=== PATIENT | male | born 1960 | race Caucasian/White ===

== ENCOUNTER 2016-07-09 19:04 | Emergency (ER) | payer MEDICAID ==
[~2016-07-09] VITALS: Ht 182.9 cm; Wt 105.0 kg
[2016-07-09 19:05] VITALS: BP 101/59
== END 2016-07-09 21:40 | disposition left against medical advice (07) ==
LOC: ER 19:05
DX: Z53.21 Procedure and treatment not carried out due to patient leaving prior to being seen by health care provider (principal)

== ENCOUNTER 2016-08-12 23:26 | Emergency (ER) | payer MEDICAID ==
[~2016-08-12] VITALS: Ht 182.9 cm; Wt 82.0 kg
[2016-08-13] MEDS ORDERED: SODIUM CHLORIDE 0.9% 1,000 ML IV ONE (06:56)
[2016-08-13 10:48] LABS: *AMPHETAMINES SCREEN URINE NEGATIVE (NEGATIVE); *BARBITURATES SCREEN URINE NEGATIVE (NEGATIVE); *BENZODIAZEPINES SCREEN URINE PRESUMTIVE POSITIVE (NEGATIVE); *COCAINE SCREEN URINE NEGATIVE (NEGATIVE); CANNABINOID URINE SCREEN PRESUMTIVE POSITIVE (NEGATIVE); METHADONE URINE SCREEN NEGATIVE (NEGATIVE); OPIATES URINE SCREEN NEGATIVE (NEGATIVE); PHENCYCLIDINE URINE SCREEN NEGATIVE (NEGATIVE)
[2016-08-13 15:10] VITALS: BP 124/65
== END 2016-08-13 15:56 | disposition home or self-care (01) ==
LOC: ER 23:27
DX: F10.129 Alcohol abuse with intoxication, unspecified (principal); F12.10 Cannabis abuse, uncomplicated; F17.200 Nicotine dependence, unspecified, uncomplicated; I10 Essential (primary) hypertension; Z79.899 Other long term (current) drug therapy; Y90.9 Presence of alcohol in blood, level not specified
CPT/HCPCS: 36415; 71010; 80305; 93005; 96360; 99285; G0482; J7030; Z7610

== ENCOUNTER 2016-09-23 23:15 | Emergency (ER) | payer MEDICAID ==
[~2016-09-23] VITALS: Ht 180.3 cm; Wt 91.0 kg
[2016-09-24] MEDS ORDERED: KETOROLAC 30MG/ML VIAL IV STA (07:39)
[2016-09-24 07:59] LABS: BASOPHILS % 0.3 % (0.0-2.0); EOSINOPHILS % 2.5 % (0.0-5.0); HEMATOCRIT. 38.5 % (42.0-52.0); HEMOGLOBIN. 13.1 g/dL (14.0-18.0); LYMPHOCYTES % 22.8 % (20.0-50.0); MEAN CORPUSCULAR HEMOGLOBIN 34.6 pg (28.0-32.0); MEAN CORPUSCULAR VOLUME 101.3 fL (80.0-94.0); NEUTROPHILS % 65.4 % (40.0-76.0); PLATELET 78 x1000/uL (130-400)
[2016-09-24 08:12] LABS: AMMONIA 12 uMol/L (<32)
[2016-09-24 08:16] LABS: CARBON DIOXIDE 27 mEq/L (21-32); CHLORIDE 111 mEq/L (98-107); CREATINE KINASE 537 IU/L (39-308); ETHANOL BLOOD 232 mg/dL; TROPONIN I 0.02 ng/mL (0.00-0.04)
[2016-09-24 09:32] LABS: *AMPHETAMINES SCREEN URINE NEGATIVE (NEGATIVE); *BARBITURATES SCREEN URINE NEGATIVE (NEGATIVE); *BENZODIAZEPINES SCREEN URINE NEGATIVE (NEGATIVE); *COCAINE SCREEN URINE NEGATIVE (NEGATIVE); CANNABINOID URINE SCREEN NEGATIVE (NEGATIVE); METHADONE URINE SCREEN NEGATIVE (NEGATIVE); OPIATES URINE SCREEN NEGATIVE (NEGATIVE); PHENCYCLIDINE URINE SCREEN NEGATIVE (NEGATIVE)
[2016-09-24 09:38] LABS: CLARITY URINE CLEAR (CLEAR); COLOR URINE YELLOW (YELLOW); GLUCOSE URINE NEGATIVE (NEGATIVE); KETONES URINE NEGATIVE (NEGATIVE); LEUKOCYTE ESTERASE URINE NEGATIVE (NEGATIVE); NITRITE URINE NEGATIVE (NEGATIVE); OCCULT BLOOD URINE NEGATIVE (NEGATIVE); PROTEIN URINE NEGATIVE (NEGATIVE); SPECIFIC GRAVITY URINE 1.013 (1.005-1.030); UROBILINOGEN URINE 0.2 E.U./dL (0.2-1.0)
[2016-09-24 11:15] VITALS: BP 146/88
== END 2016-09-24 12:09 | disposition home or self-care (01) ==
LOC: ER 23:15
DX: M54.5 Low back pain (principal); M16.10 Unilateral primary osteoarthritis, unspecified hip; R53.1 Weakness; M79.1 Myalgia; R41.82 Altered mental status, unspecified; F10.20 Alcohol dependence, uncomplicated; I25.10 Atherosclerotic heart disease of native coronary artery without angina pectoris; Z87.891 Personal history of nicotine dependence
CPT/HCPCS: 36415; 70450; 72100; 80053; 80305; 81003; 82140; 82550; 84484; 85025; 96374; 99285; G0482; J1885; Z7610

== ENCOUNTER 2016-09-27 17:12 | Emergency (ER) | payer MEDICAID ==
[~2016-09-27] VITALS: Ht 182.9 cm; Wt 68.0 kg
[2016-09-27] MEDS ORDERED: IBUPROFEN 600MG TABLET PO STA (17:44)
[2016-09-27 19:08] VITALS: BP 120/68
== END 2016-09-27 19:10 | disposition home or self-care (01) ==
LOC: ER 19:08
DX: G89.29 Other chronic pain (principal); M54.5 Low back pain; I10 Essential (primary) hypertension; I25.10 Atherosclerotic heart disease of native coronary artery without angina pectoris
CPT/HCPCS: 93005; 99283

== ENCOUNTER 2016-09-28 02:36 | Emergency (ER) | payer MEDICAID ==
[~2016-09-28] VITALS: Ht 177.8 cm; Wt 81.0 kg
[2016-09-28 04:18] LABS: BASOPHILS % 0.9 % (0.0-2.0); EOSINOPHILS % 3.2 % (0.0-5.0); HEMATOCRIT. 39.6 % (42.0-52.0); HEMOGLOBIN. 13.5 g/dL (14.0-18.0); LYMPHOCYTES % 40.5 % (20.0-50.0); MEAN CORPUSCULAR HEMOGLOBIN 34.6 pg (28.0-32.0); MEAN CORPUSCULAR VOLUME 101.5 fL (80.0-94.0); MEAN PLATELET VOLUME 8.4 fl (7.4-10.4); MONOCYTES % 8.9 % (2.0-8.0); NEUTROPHILS % 46.5 % (40.0-76.0); PLATELET 64 x1000/uL (130-400); RED CELL DISTRIBUTION WIDTH 15.1 % (11.6-14.6)
[2016-09-28 04:34] LABS: CARBON DIOXIDE 24 mEq/L (21-32); CHLORIDE 108 mEq/L (98-107); TROPONIN I 0.03 ng/mL (0.00-0.04)
[2016-09-28 04:50] VITALS: BP 108/56
== END 2016-09-28 06:52 | disposition home or self-care (01) ==
LOC: ER 02:36
DX: M79.606 Pain in leg, unspecified (principal); I25.10 Atherosclerotic heart disease of native coronary artery without angina pectoris; I10 Essential (primary) hypertension; Z95.5 Presence of coronary angioplasty implant and graft
CPT/HCPCS: 36415; 71010; 80053; 83690; 84484; 85025; 93005; 99285

== ENCOUNTER 2016-10-04 20:00 | Emergency (ER) | payer MEDICAID ==
[~2016-10-04] VITALS: Ht 182.9 cm; Wt 90.0 kg
[2016-10-04 20:04] VITALS: BP 113/68
== END 2016-10-05 01:51 | disposition left against medical advice (07) ==
LOC: ER 20:35
DX: M79.1 Myalgia (principal); Z53.21 Procedure and treatment not carried out due to patient leaving prior to being seen by health care provider

== ENCOUNTER 2016-10-10 17:05 | Emergency (ER) | payer MEDICAID ==
[~2016-10-10] VITALS: Ht 182.9 cm; Wt 82.0 kg
[2016-10-10] MEDS ORDERED: IBUPROFEN 800MG TABLET PO ONE (22:30)
[2016-10-11 01:30] VITALS: BP 145/75
== END 2016-10-11 01:30 | disposition home or self-care (01) ==
LOC: ER 22:24
DX: S82.032A Displaced transverse fracture of left patella, initial encounter for closed fracture (principal); I10 Essential (primary) hypertension; I25.2 Old myocardial infarction; F17.200 Nicotine dependence, unspecified, uncomplicated; X58.XXXA Exposure to other specified factors, initial encounter; Y93.89 Activity, other specified; Y92.89 Other specified places as the place of occurrence of the external cause; Y99.8 Other external cause status
CPT/HCPCS: 29505; 73562; 99284

== ENCOUNTER 2016-10-14 22:48 | Emergency (ER) | payer MEDICAID ==
[~2016-10-14] VITALS: Ht 182.9 cm; Wt 84.0 kg
[2016-10-15] MEDS ORDERED: KETOROLAC 60MG/2ML VIAL IM ONE (06:30)
[2016-10-15 07:00] VITALS: BP 122/72
== END 2016-10-15 07:08 | disposition home or self-care (01) ==
LOC: ER 23:05
DX: M25.562 Pain in left knee (principal); Z59.0 Homelessness
CPT/HCPCS: 96372; 99283; J1885; Z7610

== ENCOUNTER 2016-10-16 21:37 | Emergency (ER) | payer MEDICAID ==
[~2016-10-16] VITALS: Ht 175.3 cm; Wt 73.0 kg
[2016-10-17] MEDS ORDERED: KETOROLAC 60MG/2ML VIAL IM ONE (00:45)
[2016-10-17 01:10] VITALS: BP 120/78
[2017-01-19] MEDS ORDERED: KEPP500 PO (17:21)
[2017-01-20] MEDS ORDERED: KEPP500 PO (10:59)
== END 2016-10-17 01:48 | disposition home or self-care (01) ==
LOC: ER 21:44
DX: M25.562 Pain in left knee (principal); E11.9 Type 2 diabetes mellitus without complications; I10 Essential (primary) hypertension; I25.2 Old myocardial infarction; F17.210 Nicotine dependence, cigarettes, uncomplicated; Z90.49 Acquired absence of other specified parts of digestive tract; Z87.81 Personal history of (healed) traumatic fracture
CPT/HCPCS: 96372; 99283; J1885

== ENCOUNTER 2016-10-27 19:06 | Emergency (ER) | payer MEDICAID ==
[~2016-10-27] VITALS: Ht 182.9 cm; Wt 88.5 kg
[2016-10-27 19:22] VITALS: BP 112/68
== END 2016-10-28 00:25 | disposition left against medical advice (07) ==
LOC: ER 19:09
DX: Z53.21 Procedure and treatment not carried out due to patient leaving prior to being seen by health care provider (principal)

== ENCOUNTER 2016-10-28 05:21 | Emergency (ER) | payer MEDICAID ==
[~2016-10-28] VITALS: Ht 180.3 cm; Wt 78.0 kg
[2016-10-28 06:20] VITALS: BP 119/65
[2016-10-28] MEDS ORDERED: HYDROCODONE/ACETAMINOPHEN 5/325MG TABLET PO ONE (10:30)
[2017-01-19] MEDS ORDERED: KEPP500 PO (17:21)
[2017-01-20] MEDS ORDERED: KEPP500 PO (10:59)
== END 2016-10-28 10:49 | disposition home or self-care (01) ==
LOC: ER 07:57
DX: M25.562 Pain in left knee (principal); G40.909 Epilepsy, unspecified, not intractable, without status epilepticus; I95.9 Hypotension, unspecified; I25.2 Old myocardial infarction; F17.200 Nicotine dependence, unspecified, uncomplicated; I10 Essential (primary) hypertension; G89.29 Other chronic pain; Z90.49 Acquired absence of other specified parts of digestive tract
CPT/HCPCS: 99281

== ENCOUNTER 2016-10-28 22:17 | Emergency (ER) | payer MEDICAID ==
[~2016-10-28] VITALS: Ht 175.3 cm; Wt 84.0 kg
[2016-10-28 22:36] VITALS: BP 137/67
== END 2016-10-29 01:30 | disposition left against medical advice (07) ==
LOC: ER 22:24
DX: Z53.21 Procedure and treatment not carried out due to patient leaving prior to being seen by health care provider (principal)

== ENCOUNTER 2016-11-05 16:27 | Emergency (ER) | payer MEDICAID ==
[~2016-11-05] VITALS: Ht 180.3 cm; Wt 79.0 kg
[2016-11-05 16:36] VITALS: BP 106/70
== END 2016-11-05 23:46 | disposition left against medical advice (07) ==
LOC: ER 16:27
DX: Z53.21 Procedure and treatment not carried out due to patient leaving prior to being seen by health care provider (principal)

== ENCOUNTER 2016-11-06 04:50 | Emergency (ER) | payer MEDICAID ==
[~2016-11-06] VITALS: Ht 180.3 cm; Wt 77.0 kg
[2016-11-06] MEDS ORDERED: KETOROLAC 60MG/2ML VIAL IM ONE (08:00)
[2016-11-06 08:04] VITALS: BP 124/76
[2016-11-06] MEDS ORDERED: SODIUM CHLORIDE 0.9% 1,000 ML IV ONE (10:00)
== END 2016-11-06 10:46 | disposition home or self-care (01) ==
LOC: ER 08:11
DX: M25.562 Pain in left knee (principal); G89.29 Other chronic pain; I25.2 Old myocardial infarction; I10 Essential (primary) hypertension; R56.9 Unspecified convulsions; F17.210 Nicotine dependence, cigarettes, uncomplicated
CPT/HCPCS: 96372; 99284; J1885; J7030

== ENCOUNTER 2016-11-10 21:57 | Emergency (ER) | payer MEDICAID ==
[~2016-11-10] VITALS: Ht 170.2 cm; Wt 73.0 kg
[2016-11-11 00:43] LABS: BASOPHILS % 0.7 % (0.0-2.0); EOSINOPHILS % 5.4 % (0.0-5.0); HEMATOCRIT. 35.6 % (42.0-52.0); HEMOGLOBIN. 12.2 g/dL (14.0-18.0); MEAN CORPUSCULAR VOLUME 102.2 fL (80.0-94.0); MEAN PLATELET VOLUME 7.9 fl (7.4-10.4); MONOCYTES % 7.8 % (2.0-8.0); NEUTROPHILS % 39.1 % (40.0-76.0); PLATELET 119 x1000/uL (130-400); RED BLOOD CELL COUNT 3.48 mill/uL (4.7-6.1); RED CELL DISTRIBUTION WIDTH 14.9 % (11.6-14.6)
[2016-11-11 00:48] LABS: CHLORIDE 111 mEq/L (98-107)
[2016-11-11 00:58] LABS: CARBON DIOXIDE 23 mEq/L (21-32); CREATINE KINASE 232 IU/L (39-308)
[2016-11-11 01:20] LABS: ETHANOL BLOOD 363 mg/dL
[2016-11-11 03:29] LABS: CLARITY URINE CLEAR (CLEAR); COLOR URINE YELLOW (YELLOW); GLUCOSE URINE NEGATIVE (NEGATIVE); KETONES URINE NEGATIVE (NEGATIVE); LEUKOCYTE ESTERASE URINE NEGATIVE (NEGATIVE); NITRITE URINE NEGATIVE (NEGATIVE); OCCULT BLOOD URINE NEGATIVE (NEGATIVE); PH URINE 5.5 (4.5-8.0); PROTEIN URINE NEGATIVE (NEGATIVE); SPECIFIC GRAVITY URINE 1.009 (1.005-1.030); UROBILINOGEN URINE 0.2 E.U./dL (0.2-1.0)
[2016-11-11 03:42] LABS: *AMPHETAMINES SCREEN URINE NEGATIVE (NEGATIVE); *BARBITURATES SCREEN URINE NEGATIVE (NEGATIVE); *BENZODIAZEPINES SCREEN URINE PRESUMTIVE POSITIVE (NEGATIVE); *COCAINE SCREEN URINE NEGATIVE (NEGATIVE); CANNABINOID URINE SCREEN NEGATIVE (NEGATIVE); METHADONE URINE SCREEN NEGATIVE (NEGATIVE); OPIATES URINE SCREEN NEGATIVE (NEGATIVE); PHENCYCLIDINE URINE SCREEN NEGATIVE (NEGATIVE)
[2016-11-11 08:53] VITALS: BP 136/74
== END 2016-11-11 10:27 | disposition home or self-care (01) ==
LOC: ER 22:05
DX: M25.562 Pain in left knee (principal); F17.200 Nicotine dependence, unspecified, uncomplicated
CPT/HCPCS: 36415; 80053; 80305; 81003; 82550; 85025; 99284; G0482; Z7610

== ENCOUNTER 2016-11-12 18:29 | Emergency (ER) | payer MEDICAID ==
[~2016-11-12] VITALS: Ht 177.8 cm; Wt 90.0 kg
[2016-11-12 18:31] VITALS: BP 106/56
== END 2016-11-13 06:16 | disposition left against medical advice (07) ==
LOC: ER 18:37
DX: Z53.21 Procedure and treatment not carried out due to patient leaving prior to being seen by health care provider (principal)

== ENCOUNTER 2016-11-13 01:51 | Emergency (ER) | payer MEDICAID ==
[~2016-11-13] VITALS: Ht 180.3 cm; Wt 78.0 kg
[2016-11-13] MEDS ORDERED: KETOROLAC 60MG/2ML VIAL IM STA (08:55)
[2016-11-13 09:59] LABS: BASOPHILS % 0.6 % (0.0-2.0); EOSINOPHILS % 5.7 % (0.0-5.0); HEMATOCRIT. 37.8 % (42.0-52.0); LYMPHOCYTES % 35.4 % (20.0-50.0); MEAN CORPUSCULAR HEMOGLOBIN 34.9 pg (28.0-32.0); MEAN CORPUSCULAR VOLUME 101.8 fL (80.0-94.0); MEAN PLATELET VOLUME 7.5 fl (7.4-10.4); MONOCYTES % 11.3 % (2.0-8.0); PLATELET 98 x1000/uL (130-400); RED BLOOD CELL COUNT 3.72 mill/uL (4.7-6.1); RED CELL DISTRIBUTION WIDTH 14.7 % (11.6-14.6)
[2016-11-13 10:10] LABS: CHLORIDE 109 mEq/L (98-107)
[2016-11-13 10:24] LABS: CARBON DIOXIDE 27 mEq/L (21-32); ETHANOL BLOOD 262 mg/dL
[2016-11-13 11:37] VITALS: BP 124/78
== END 2016-11-13 12:41 | disposition home or self-care (01) ==
LOC: ER 02:10
DX: M25.562 Pain in left knee (principal); G89.29 Other chronic pain; F10.129 Alcohol abuse with intoxication, unspecified; Y90.8 Blood alcohol level of 240 mg/100 ml or more; D50.9 Iron deficiency anemia, unspecified; I10 Essential (primary) hypertension; I25.2 Old myocardial infarction; G40.909 Epilepsy, unspecified, not intractable, without status epilepticus
CPT/HCPCS: 36415; 80053; 85025; 93971; 96372; 99285; G0482; J1885

== ENCOUNTER 2016-11-17 01:58 | Emergency (ER) | payer MEDICAID ==
[~2016-11-17] VITALS: Ht 180.3 cm; Wt 82.0 kg
[2016-11-17] MEDS ORDERED: KETOROLAC 60MG/2ML VIAL IM ONE (09:00)
[2016-11-17 09:04] VITALS: BP 119/72
== END 2016-11-17 09:57 | disposition left against medical advice (07) ==
LOC: ER 01:58
DX: M25.562 Pain in left knee (principal); G89.29 Other chronic pain; I25.2 Old myocardial infarction; I10 Essential (primary) hypertension; G40.909 Epilepsy, unspecified, not intractable, without status epilepticus; Z90.49 Acquired absence of other specified parts of digestive tract
CPT/HCPCS: 96372; 99283; J1885; Z7610

== ENCOUNTER 2016-12-09 00:01 | Emergency (ER) | payer MEDICAID ==
[~2016-12-09] VITALS: Ht 180.3 cm; Wt 90.0 kg
[2016-12-09 09:10] VITALS: BP 108/62
== END 2016-12-09 09:16 | disposition home or self-care (01) ==
LOC: ER 00:01
DX: S01.81XA Laceration without foreign body of other part of head, initial encounter (principal); S81.012D Laceration without foreign body, left knee, subsequent encounter; M24.562 Contracture, left knee; F17.200 Nicotine dependence, unspecified, uncomplicated; F12.10 Cannabis abuse, uncomplicated; I25.2 Old myocardial infarction; W19.XXXA Unspecified fall, initial encounter; Y93.89 Activity, other specified; Y92.89 Other specified places as the place of occurrence of the external cause; Y99.8 Other external cause status
CPT/HCPCS: 12013; 70450; 72125; 99284; X7700; Z7610

== ENCOUNTER 2016-12-10 00:29 | Emergency (ER) | payer MEDICAID ==
[~2016-12-10] VITALS: Ht 177.8 cm; Wt 79.5 kg
[2016-12-10] MEDS ORDERED: FOLIC ACID 1 MG, THIAMINE HCL 100 MG, MVI, ADULT NO.1 10 ML in DEXTROSE 5% WATER 1,000 ML IV ONE ×4 (03:00)
[2016-12-10 05:37] VITALS: BP 112/66
[2017-01-19] MEDS ORDERED: KEPP500 PO (17:21)
[2017-01-20] MEDS ORDERED: KEPP500 PO (10:59)
== END 2016-12-10 06:53 | disposition home or self-care (01) ==
LOC: ER 00:29
DX: S20.211A Contusion of right front wall of thorax, initial encounter (principal); F10.129 Alcohol abuse with intoxication, unspecified; G40.909 Epilepsy, unspecified, not intractable, without status epilepticus; I25.2 Old myocardial infarction; F12.10 Cannabis abuse, uncomplicated; Z59.0 Homelessness; Y90.9 Presence of alcohol in blood, level not specified; X58.XXXA Exposure to other specified factors, initial encounter; Y93.89 Activity, other specified; Y92.488 Other paved roadways as the place of occurrence of the external cause
CPT/HCPCS: 71101; 99284; Z7610

== ENCOUNTER 2016-12-10 12:45 | Emergency (ER) | payer MEDICAID ==
[~2016-12-10] VITALS: Ht 180.3 cm; Wt 80.0 kg
[2016-12-10] MEDS ORDERED: SODIUM CHLORIDE 0.9% 1,000 ML IV ONE (13:06)
[2016-12-10] MEDS ORDERED: CHLORDIAZEPOXIDE 25MG CAPSULE PO ONE (13:15)
[2016-12-10 14:07] VITALS: BP 113/68
[2017-01-19] MEDS ORDERED: KEPP500 PO (17:21)
[2017-01-20] MEDS ORDERED: KEPP500 PO (10:59)
== END 2016-12-10 15:47 | disposition left against medical advice (07) ==
LOC: ER 13:01
DX: F10.129 Alcohol abuse with intoxication, unspecified (principal); R55 Syncope and collapse; G40.909 Epilepsy, unspecified, not intractable, without status epilepticus; I25.2 Old myocardial infarction; F12.10 Cannabis abuse, uncomplicated; Y90.9 Presence of alcohol in blood, level not specified
CPT/HCPCS: 70450; 93005; 96360; 99284; J7030

== ENCOUNTER 2017-01-09 11:44 | Emergency (ER) | payer MEDICAID ==
[~2017-01-09] VITALS: Ht 172.7 cm; Wt 77.0 kg
[2017-01-09] MEDS ORDERED: KETOROLAC 30MG/ML VIAL IM ONE (17:00)
[2017-01-09 17:23] VITALS: BP 114/75
[2017-01-19] MEDS ORDERED: KEPP500 PO (17:21)
[2017-01-20] MEDS ORDERED: KEPP500 PO (10:59)
== END 2017-01-09 18:21 | disposition home or self-care (01) ==
LOC: ER 11:44
DX: G89.29 Other chronic pain (principal); M25.562 Pain in left knee; G40.909 Epilepsy, unspecified, not intractable, without status epilepticus; I25.2 Old myocardial infarction; F12.10 Cannabis abuse, uncomplicated; F10.21 Alcohol dependence, in remission
CPT/HCPCS: 96372; 99283; J1885; Z7610

== ENCOUNTER 2017-01-17 20:28 | Inpatient (IN) | payer MEDICAID ==
[~2017-01-17] VITALS: Ht 177.8 cm; Wt 76.7 kg
[~2017-01-17 20:28] MED LIST: IOHEXOL-350 100 ML BOTTLE ONE; SODIUM CHLORIDE 0.9% 10ML VIAL ONE
[2017-01-17] MEDS ORDERED: ASPIRIN 81MG TABLET PO STA (21:06)
[2017-01-17] MEDS ORDERED: SODIUM CHLORIDE 0.9% 1,000 ML IV ONE (21:06)
[2017-01-17 22:04] LABS: CHLORIDE 101 mEq/L (98-107)
[2017-01-17 22:06] LABS: BASOPHILS % 0.9 % (0.0-2.0); EOSINOPHILS % 3.2 % (0.0-5.0); HEMATOCRIT. 36.7 % (42.0-52.0); HEMOGLOBIN. 12.7 g/dL (14.0-18.0); LYMPHOCYTES % 45.2 % (20.0-50.0); MEAN CORPUSCULAR VOLUME 101.3 fL (80.0-94.0); MEAN PLATELET VOLUME 8.1 fl (7.4-10.4); MONOCYTES % 5.9 % (2.0-8.0); NEUTROPHILS % 44.8 % (40.0-76.0); PLATELET 55 x1000/uL (130-400); RED BLOOD CELL COUNT 3.63 mill/uL (4.7-6.1); RED CELL DISTRIBUTION WIDTH 16.3 % (11.6-14.6)
[2017-01-17 22:09] LABS: D-DIMER 1.9 mg/L FEU (<0.50); INR 1.1; PARTIAL THROMBOPLASTIN TIME 28.7 sec (23.4-31.0); PROTHROMBIN TIME 11.4 sec (9.4-11.6)
[2017-01-17 22:10] LABS: CARBON DIOXIDE 26 mEq/L (21-32)
[2017-01-17 22:12] LABS: TROPONIN I < 0.02 ng/mL (0.00-0.04)
[2017-01-17 22:13] LABS: ETHANOL BLOOD 486 mg/dL
[2017-01-17 22:53] LABS: *AMPHETAMINES SCREEN URINE NEGATIVE (NEGATIVE); *BARBITURATES SCREEN URINE NEGATIVE (NEGATIVE); *BENZODIAZEPINES SCREEN URINE NEGATIVE (NEGATIVE); *COCAINE SCREEN URINE NEGATIVE (NEGATIVE); CANNABINOID URINE SCREEN NEGATIVE (NEGATIVE); METHADONE URINE SCREEN NEGATIVE (NEGATIVE); OPIATES URINE SCREEN NEGATIVE (NEGATIVE); PHENCYCLIDINE URINE SCREEN NEGATIVE (NEGATIVE)
[2017-01-18] VITALS (9 sets, daily range): BP systolic 117–208; BP diastolic 65–118
[2017-01-18 07:36] LABS: TROPONIN I 0.02 ng/mL (0.00-0.04)
[2017-01-18] MEDS ORDERED: IPRATROPIUM/ALBUTEROL 0.5-3(2.5)MG/3ML NEB INH PRN (08:00)
[2017-01-18] MEDS ORDERED: HYDROCODONE/ACETAMINOPHEN 5/325MG TABLET PO PRN (08:00)
[2017-01-18] MEDS ORDERED: ACETAMINOPHEN 650MG SUPP PR PRN (08:00)
[2017-01-18] MEDS ORDERED: ONDANSETRON HCL 4MG/2ML VIAL IV PRN (08:00)
[2017-01-18] MEDS ORDERED: NA PHOS,M-B/NA PHOS,DI-BA ENEMA 118ML PR PRN (08:00)
[2017-01-18] MEDS ORDERED: MAGNESIUM/ALUMINUM HYDROXIDE/SIMETHICONE 30ML UDC PO PRN (08:00)
[2017-01-18] MEDS ORDERED: ACETAMINOPHEN 650MG/20.3ML UDC GT PRN (08:00)
[2017-01-18] MEDS ORDERED: DIPHENHYDRAMINE 50MG/ML VIAL IV PRN (08:00)
[2017-01-18] MEDS ORDERED: DOCUSATE SODIUM 100MG CAPSULE PO PRN (08:00)
[2017-01-18] MEDS ORDERED: GUAIFENESIN 200MG/10ML SUGAR FREE UDC PO PRN (08:00)
[2017-01-18] MEDS ORDERED: CLONIDINE 0.1MG TABLET PO PRN (08:00)
[2017-01-18] MEDS ORDERED: ACETAMINOPHEN 325MG TABLET PO PRN (08:00)
[2017-01-18] MEDS ORDERED: REGADENOSON 0.4 MG/5 ML IV SCH (09:30)
[2017-01-18] MEDS ORDERED: REGADENOSON 0.4 MG/5 ML IV ONE (10:32)
[2017-01-18 10:34] LABS: T4 FREE 0.65 ng/dL (0.76-1.46)
[2017-01-18] MEDS: SODIUM CHLORIDE 0.9% INJ 3ML FLUSH IVF SCH ×2 (14:00→21:03)
[2017-01-18 18:19] LABS: CREATINE KINASE 812 IU/L (39-308); CREATINE KINASE MB FRACTION 5.5 ng/mL (0.5-3.6); TROPONIN I < 0.02 ng/mL (0.00-0.04)
[2017-01-18] MEDS ORDERED: LORAZEPAM 2MG/ML CPJ IV PRN (18:30)
[2017-01-18] MEDS ORDERED: LORAZEPAM 2MG/ML CPJ IV NR (18:30)
[2017-01-18 18:42] LABS: BG BASE EXCESS -11.6 mmol/L (-2.0-2.0); BG CARBOXYHEMOGLOBIN 0.6 % (0.5-1.5); BG DEOXYHEMOGLOBIN 0.4 % (0.0-5.0); BG FRACTION INSPIRED OXYGEN 100; BG METHEMOGLOBIN 0.4 % (0.0-1.5); BG OXYGEN SATURATION 99.6 % (92.0-98.5); BG OXYHEMOGLOBIN 98.6 % (94.0-97.0); BG PCO2 31.4 mmHg (35.0-45.0); BG PH 7.268 (7.350-7.450); BG PO2 409.5 mmHg (75.0-100.0); BG SAMPLE SITE RIGHT RADIAL; BG TOTAL HEMOGLOBIN 13.8 g/dL (12.0-18.0); BG VENT MODE MASK - NRB
[2017-01-18] MEDS ORDERED: HYDRALAZINE 20MG/ML VIAL IV PRN (18:45)
[2017-01-18] MEDS ORDERED: [UNRECOGNIZED DRUG - REMARK] IV SCH ×4 (21:00)
[2017-01-18] MEDS: CHLORDIAZEPOXIDE 25MG CAPSULE PO SCH (21:04)
[2017-01-18 21:59] LABS: BASOPHILS % 0.6 % (0.0-2.0); EOSINOPHILS % 1.3 % (0.0-5.0); HEMATOCRIT. 34.9 % (42.0-52.0); HEMOGLOBIN. 12.1 g/dL (14.0-18.0); LYMPHOCYTES % 18.4 % (20.0-50.0); MEAN CORPUSCULAR HEMOGLOBIN 34.8 pg (28.0-32.0); MEAN PLATELET VOLUME 7.5 fl (7.4-10.4); MONOCYTES % 8.2 % (2.0-8.0); NEUTROPHILS % 71.5 % (40.0-76.0); PLATELET 52 x1000/uL (130-400); RED CELL DISTRIBUTION WIDTH 16.3 % (11.6-14.6)
[2017-01-18 22:05] LABS: CHLORIDE 97 mEq/L (98-107)
[2017-01-18] MEDS: LEVETIRACETAM 500 MG in SODIUM CHLORIDE 0.9% 100 ML IV SCH (22:06)
[2017-01-18 22:08] LABS: AMMONIA 42 uMol/L (<32); CARBON DIOXIDE 27 mEq/L (21-32)
[2017-01-19] VITALS (10 sets, daily range): BP systolic 113–177; BP diastolic 68–88
[2017-01-19 01:29] LABS: TROPONIN I 0.05 ng/mL (0.00-0.04)
[2017-01-19 01:30] LABS: CREATINE KINASE MB FRACTION 5.3 ng/mL (0.5-3.6)
[2017-01-19] MEDS: SODIUM CHLORIDE 0.9% INJ 3ML FLUSH IVF SCH ×3 (05:47→21:01)
[2017-01-19 09:34] LABS: BASOPHILS % 0.7 % (0.0-2.0); HEMATOCRIT. 34.8 % (42.0-52.0); HEMOGLOBIN. 12.2 g/dL (14.0-18.0); LYMPHOCYTES % 21.3 % (20.0-50.0); MEAN CORPUSCULAR HEMOGLOBIN 35.1 pg (28.0-32.0); MEAN CORPUSCULAR VOLUME 100.4 fL (80.0-94.0); MEAN PLATELET VOLUME 8.1 fl (7.4-10.4); MONOCYTES % 13.3 % (2.0-8.0); NEUTROPHILS % 62.7 % (40.0-76.0); PLATELET 52 x1000/uL (130-400); RED BLOOD CELL COUNT 3.47 mill/uL (4.7-6.1); RED CELL DISTRIBUTION WIDTH 16.4 % (11.6-14.6)
[2017-01-19] MEDS: LEVETIRACETAM 500 MG in SODIUM CHLORIDE 0.9% 100 ML IV SCH ×2 (09:50→21:01)
[2017-01-19 10:09] LABS: CARBON DIOXIDE 26 mEq/L (21-32); CHLORIDE 93 mEq/L (98-107); CREATINE KINASE MB FRACTION 4.2 ng/mL (0.5-3.6); HDL CHOLESTEROL 121 mg/dL (40-59); LDL CHOLESTEROL 67 mg/dL (5-100)
[2017-01-19] MEDS: CHLORDIAZEPOXIDE 25MG CAPSULE PO SCH ×2 (10:09→21:00)
[2017-01-19] MEDS ORDERED: MVI, ADULT NO.1 10 ML, THIAMINE HCL 100 MG, FOLIC ACID 1 MG in DEXT 5%/0.45% NACL 1000M... IV SCH ×4 (14:58)
[2017-01-19] MEDS ORDERED: KEPP500 PO (17:21)
[2017-01-19] MEDS ORDERED: L25 GT (17:21)
[2017-01-20 03:39] VITALS: BP 124/84
[2017-01-20] MEDS: SODIUM CHLORIDE 0.9% INJ 3ML FLUSH IVF SCH ×2 (05:12→14:00)
[2017-01-20 08:00] VITALS: BP 106/57
[2017-01-20] MEDS: CHLORDIAZEPOXIDE 25MG CAPSULE PO SCH (08:49)
[2017-01-20] MEDS: LEVETIRACETAM 500 MG in SODIUM CHLORIDE 0.9% 100 ML IV SCH (08:51)
[2017-01-20 10:00] VITALS: BP 122/77
[2017-01-20] MEDS ORDERED: KEPP500 PO (10:59)
[2017-01-20 12:00] VITALS: BP 113/83
[2017-01-20 13:01] VITALS: BP 156/81
== END 2017-01-20 14:30 | disposition home or self-care (01) | DRG 243 ==
LOC: ER 20:28 → 6WST 23:45 → ENRESERV 01-18 01:27 → 5EST 01-18 19:10
PROVIDERS: ADMIT Family Medicine; ATTEND Family Medicine
DX: K21.9 Gastro-esophageal reflux disease without esophagitis (principal); K74.60 Unspecified cirrhosis of liver; E87.1 Hypo-osmolality and hyponatremia; I25.2 Old myocardial infarction; I10 Essential (primary) hypertension; I25.10 Atherosclerotic heart disease of native coronary artery without angina pectoris; J44.9 Chronic obstructive pulmonary disease, unspecified; E78.00 Pure hypercholesterolemia, unspecified; F17.210 Nicotine dependence, cigarettes, uncomplicated; E78.5 Hyperlipidemia, unspecified; F12.90 Cannabis use, unspecified, uncomplicated; G40.909 Epilepsy, unspecified, not intractable, without status epilepticus; D63.8 Anemia in other chronic diseases classified elsewhere; R79.1 Abnormal coagulation profile; Z95.1 Presence of aortocoronary bypass graft; Z59.0 Homelessness; F10.229 Alcohol dependence with intoxication, unspecified
CPT/HCPCS: 36415; 36600; 71010; 71275; 78452; 80048; 80053; 80061; 80305; 82140; 82375; 82550; 82553; 82805; 82962; 83036; 83880; 84439; 84443; 84484; 85018; 85025; 85379; 85610; 85730; 93005; 93017; 93306; 93970; 96360; 97162; 99285; A4216; A9500; G0482; J1953; J2060; J2785; J3411; J3490; J7030; J7050; Q9967

== ENCOUNTER 2017-01-22 16:35 | Emergency (ER) | payer MEDICAID ==
[~2017-01-22] VITALS: Ht 172.7 cm; Wt 78.0 kg
[2017-01-22 16:47] VITALS: BP 112/72
== END 2017-01-22 19:27 | disposition left against medical advice (07) ==
LOC: ER 16:46
DX: R05 Cough (principal); R68.83 Chills (without fever); Z53.21 Procedure and treatment not carried out due to patient leaving prior to being seen by health care provider

== ENCOUNTER 2017-01-29 01:15 | Emergency (ER) | payer MEDICAID ==
[~2017-01-29] VITALS: Ht 170.2 cm; Wt 73.0 kg
[2017-01-29 04:07] LABS: BASOPHILS % 0.5 % (0.0-2.0); EOSINOPHILS % 4.2 % (0.0-5.0); HEMATOCRIT. 35.3 % (42.0-52.0); HEMOGLOBIN. 12.2 g/dL (14.0-18.0); LYMPHOCYTES % 40.4 % (20.0-50.0); MEAN CORPUSCULAR HEMOGLOBIN 36.1 pg (28.0-32.0); MEAN CORPUSCULAR VOLUME 104.4 fL (80.0-94.0); MEAN PLATELET VOLUME 6.6 fl (7.4-10.4); MONOCYTES % 12.7 % (2.0-8.0); NEUTROPHILS % 42.2 % (40.0-76.0); PLATELET 163 x1000/uL (130-400); RED BLOOD CELL COUNT 3.38 mill/uL (4.7-6.1); RED CELL DISTRIBUTION WIDTH 16.7 % (11.6-14.6)
[2017-01-29 04:23] LABS: CARBON DIOXIDE 29 mEq/L (21-32); CHLORIDE 112 mEq/L (98-107); TROPONIN I < 0.02 ng/mL (0.00-0.04)
[2017-01-29 04:43] LABS: ETHANOL BLOOD 328 mg/dL
[2017-01-29] MEDS ORDERED: FOLIC ACID 1 MG, THIAMINE HCL 100 MG, MVI, ADULT NO.1 10 ML in SODIUM CHLORIDE 0.9% 1,0... IV SCH ×4 (06:00)
[2017-01-29 06:51] LABS: CLARITY URINE CLEAR (CLEAR); COLOR URINE YELLOW (YELLOW); GLUCOSE URINE NEGATIVE (NEGATIVE); KETONES URINE NEGATIVE (NEGATIVE); LEUKOCYTE ESTERASE URINE NEGATIVE (NEGATIVE); NITRITE URINE NEGATIVE (NEGATIVE); OCCULT BLOOD URINE NEGATIVE (NEGATIVE); PH URINE 5.5 (4.5-8.0); PROTEIN URINE NEGATIVE (NEGATIVE); UROBILINOGEN URINE 0.2 E.U./dL (0.2-1.0)
[2017-01-29 07:01] LABS: *AMPHETAMINES SCREEN URINE NEGATIVE (NEGATIVE); *BARBITURATES SCREEN URINE NEGATIVE (NEGATIVE); *BENZODIAZEPINES SCREEN URINE PRESUMTIVE POSITIVE (NEGATIVE); *COCAINE SCREEN URINE NEGATIVE (NEGATIVE); CANNABINOID URINE SCREEN NEGATIVE (NEGATIVE); METHADONE URINE SCREEN NEGATIVE (NEGATIVE); OPIATES URINE SCREEN NEGATIVE (NEGATIVE); PHENCYCLIDINE URINE SCREEN NEGATIVE (NEGATIVE)
[2017-01-29] MEDS ORDERED: FOLIC ACID 1 MG, THIAMINE HCL 100 MG, MVI, ADULT NO.1 10 ML in DEXTROSE 5% WATER 1,000 ML IV ONE ×4 (07:30)
[2017-01-29 08:55] VITALS: BP 135/76
== END 2017-01-29 08:57 | disposition home or self-care (01) ==
LOC: ER 01:16
DX: M25.562 Pain in left knee (principal); G89.29 Other chronic pain; F10.129 Alcohol abuse with intoxication, unspecified; Y90.8 Blood alcohol level of 240 mg/100 ml or more; R03.0 Elevated blood-pressure reading, without diagnosis of hypertension; I51.9 Heart disease, unspecified; I25.2 Old myocardial infarction
CPT/HCPCS: 36415; 71010; 80053; 80305; 81003; 83690; 84484; 85025; 93005; 96365; 99285; G0482; J3411; J3490; J7070; J7030

== ENCOUNTER 2017-01-31 18:24 | Emergency (ER) | payer MEDICAID ==
[~2017-01-31] VITALS: Ht 177.8 cm; Wt 90.0 kg
[2017-01-31 18:50] VITALS: BP 115/61
== END 2017-01-31 19:26 | disposition left against medical advice (07) ==
LOC: ER 18:24
DX: R07.9 Chest pain, unspecified (principal); Z53.21 Procedure and treatment not carried out due to patient leaving prior to being seen by health care provider
CPT/HCPCS: 93005

== ENCOUNTER 2017-02-06 14:37 | Inpatient (IN) | payer MEDICAID, OTHER ==
[~2017-02-06] VITALS: Ht 182.9 cm; Wt 81.2 kg
[2017-02-06] MEDS ORDERED: SODIUM CHLORIDE 0.9% 1,000 ML IV ONE (15:00)
[2017-02-06 15:26] LABS: INR 1.2; PARTIAL THROMBOPLASTIN TIME 28.5 sec (23.4-31.0); PROTHROMBIN TIME 12.2 sec (9.4-11.6)
[2017-02-06 15:28] LABS: BASOPHILS % 0.8 % (0.0-2.0); EOSINOPHILS % 4.1 % (0.0-5.0); HEMATOCRIT. 32.1 % (42.0-52.0); HEMOGLOBIN. 11.2 g/dL (14.0-18.0); LYMPHOCYTES % 38.9 % (20.0-50.0); MEAN CORPUSCULAR HEMOGLOBIN 36.1 pg (28.0-32.0); MEAN CORPUSCULAR VOLUME 103.3 fL (80.0-94.0); MONOCYTES % 8.3 % (2.0-8.0); NEUTROPHILS % 47.9 % (40.0-76.0); PLATELET 91 x1000/uL (130-400); RED BLOOD CELL COUNT 3.11 mill/uL (4.7-6.1); RED CELL DISTRIBUTION WIDTH 17.3 % (11.6-14.6)
[2017-02-06 15:34] LABS: CARBON DIOXIDE 23 mEq/L (21-32); CHLORIDE 113 mEq/L (98-107); TROPONIN I < 0.02 ng/mL (0.00-0.04)
[2017-02-06 16:02] LABS: ETHANOL BLOOD 372 mg/dL
[2017-02-06 16:43] LABS: *AMPHETAMINES SCREEN URINE NEGATIVE (NEGATIVE); *BARBITURATES SCREEN URINE NEGATIVE (NEGATIVE); *BENZODIAZEPINES SCREEN URINE NEGATIVE (NEGATIVE); *COCAINE SCREEN URINE NEGATIVE (NEGATIVE); CANNABINOID URINE SCREEN NEGATIVE (NEGATIVE); METHADONE URINE SCREEN NEGATIVE (NEGATIVE); OPIATES URINE SCREEN NEGATIVE (NEGATIVE); PHENCYCLIDINE URINE SCREEN NEGATIVE (NEGATIVE)
[2017-02-06] MEDS ORDERED: ASPIRIN 325MG TABLET PO ONE (17:45)
[2017-02-06] MEDS ORDERED: LORAZEPAM 2MG/ML CPJ IV PRN (20:15)
[2017-02-06] MEDS ORDERED: IPRATROPIUM/ALBUTEROL 0.5-3(2.5)MG/3ML NEB INH PRN (20:15)
[2017-02-06] MEDS ORDERED: DOCUSATE SODIUM 100MG CAPSULE PO PRN (20:15)
[2017-02-06] MEDS ORDERED: ACETAMINOPHEN 325MG TABLET PO PRN (20:15)
[2017-02-06] MEDS ORDERED: HYDROCODONE/ACETAMINOPHEN 5/325MG TABLET PO PRN (20:15)
[2017-02-06] MEDS ORDERED: MAGNESIUM/ALUMINUM HYDROXIDE/SIMETHICONE 30ML UDC PO PRN (20:15)
[2017-02-06] MEDS ORDERED: POTASSIUM CHLORIDE 20MEQ TABLET SR PO NR (20:15)
[2017-02-06] MEDS ORDERED: CLONIDINE 0.1MG TABLET PO PRN (20:15)
[2017-02-06] MEDS ORDERED: ONDANSETRON HCL 4MG/2ML VIAL IV PRN (20:15)
[2017-02-06 20:50] LABS: CARBON DIOXIDE 22 mEq/L (21-32); CHLORIDE 114 mEq/L (98-107)
[2017-02-06 21:10] VITALS: BP 111/70
[2017-02-06] MEDS ORDERED: DEXTROSE 50% WATER 50ML SYRINGE IV PRN (23:00)
[2017-02-06] MEDS ORDERED: MVI, ADULT NO.1 10 ML, FOLIC ACID 1 MG, THIAMINE HCL 100 MG in SODIUM CHLORIDE 0.9% 1,0... IV NR ×4 (23:00)
[2017-02-06 23:42] LABS: CREATINE KINASE 264 IU/L (39-308); CREATINE KINASE MB FRACTION 3.3 ng/mL (0.5-3.6); TROPONIN I < 0.02 ng/mL (0.00-0.04)
[2017-02-07] VITALS: BP 115/76
[2017-02-07] MEDS: LEVETIRACETAM 500MG TABLET PO SCH ×3 (00:03→22:11)
[2017-02-07] MEDS: CHLORDIAZEPOXIDE 25MG CAPSULE PO SCH ×4 (00:04→22:12)
[2017-02-07] MEDS: SODIUM CHLORIDE 0.9% 1,000 ML IV SCH ×3 (00:06→22:12)
[2017-02-07 04:00] VITALS: BP 151/86
[2017-02-07 06:30] LABS: HEMATOCRIT. 34.4 % (42.0-52.0); MEAN CORPUSCULAR HEMOGLOBIN 36.2 pg (28.0-32.0); MEAN PLATELET VOLUME 7.7 fl (7.4-10.4); PLATELET 91 x1000/uL (130-400); RED BLOOD CELL COUNT 3.31 mill/uL (4.7-6.1); RED CELL DISTRIBUTION WIDTH 16.9 % (11.6-14.6)
[2017-02-07] MEDS: BLOOD SUGAR DIAGNOSTIC STRIP TEST SCH ×4 (06:48→21:00)
[2017-02-07] MEDS: INSULIN LISPRO 100 UNITS/ML SUBCUT SCH ×4 (07:30→21:00)
[2017-02-07] MEDS: THIAMINE HCL 100MG TABLET PO SCH (08:19)
[2017-02-07] MEDS: MULTIVITAMINS,THER W-MINERALS TABLET PO SCH (08:19)
[2017-02-07] MEDS: FOLIC ACID 1MG TABLET PO SCH (08:19)
[2017-02-07] MEDS: ASPIRIN 81MG EC TABLET PO SCH (08:19)
[2017-02-07 08:30] VITALS: BP 163/88
[2017-02-07 08:50] LABS: CREATINE KINASE 287 IU/L (39-308); CREATINE KINASE MB FRACTION 3.5 ng/mL (0.5-3.6); HDL CHOLESTEROL 89 mg/dL (40-59); LDL CHOLESTEROL 86 mg/dL (5-100); TROPONIN I < 0.02 ng/mL (0.00-0.04)
[2017-02-07 09:29] LABS: CLARITY URINE CLEAR (CLEAR); COLOR URINE YELLOW (YELLOW); GLUCOSE URINE NEGATIVE (NEGATIVE); KETONES URINE NEGATIVE (NEGATIVE); LEUKOCYTE ESTERASE URINE NEGATIVE (NEGATIVE); NITRITE URINE NEGATIVE (NEGATIVE); OCCULT BLOOD URINE NEGATIVE (NEGATIVE); PH URINE 5.5 (4.5-8.0); PROTEIN URINE NEGATIVE (NEGATIVE); SPECIFIC GRAVITY URINE 1.011 (1.005-1.030); UROBILINOGEN URINE 0.2 E.U./dL (0.2-1.0)
[2017-02-07 12:00] VITALS: BP 147/87
[2017-02-07] MEDS: NICOTINE 7MG PATCH TD SCH (13:56)
[2017-02-07 16:02] VITALS: BP 134/75
[2017-02-07 17:44] LABS: ATYPICAL LYMPHOCYTES 3; PLATELET ESTIMATE DECREASED
[2017-02-07 20:00] VITALS: BP 138/76
[2017-02-08 00:02] VITALS: BP 135/75
[2017-02-08 04:00] VITALS: BP 158/86
[2017-02-08] MEDS: CHLORDIAZEPOXIDE 25MG CAPSULE PO SCH ×2 (05:19→13:37)
[2017-02-08] MEDS: BLOOD SUGAR DIAGNOSTIC STRIP TEST SCH (07:24)
[2017-02-08] MEDS: INSULIN LISPRO 100 UNITS/ML SUBCUT SCH (07:28)
[2017-02-08 08:00] VITALS: BP 129/87
[2017-02-08] MEDS: LEVETIRACETAM 500MG TABLET PO SCH (08:51)
[2017-02-08] MEDS: NICOTINE 7MG PATCH TD SCH (08:51)
[2017-02-08] MEDS: MULTIVITAMINS,THER W-MINERALS TABLET PO SCH (08:51)
[2017-02-08] MEDS: THIAMINE HCL 100MG TABLET PO SCH (08:51)
[2017-02-08] MEDS: ASPIRIN 81MG EC TABLET PO SCH (08:51)
[2017-02-08] MEDS: FOLIC ACID 1MG TABLET PO SCH (08:51)
[2017-02-08 09:13] LABS: CARBON DIOXIDE 21 mEq/L (21-32); CHLORIDE 102 mEq/L (98-107)
[2017-02-08 10:22] LABS: BASOPHILS % 0.9 % (0.0-2.0); EOSINOPHILS % 3.2 % (0.0-5.0); HEMATOCRIT. 37.2 % (42.0-52.0); LYMPHOCYTES % 13.7 % (20.0-50.0); MEAN CORPUSCULAR HEMOGLOBIN 36.1 pg (28.0-32.0); MEAN CORPUSCULAR VOLUME 103.3 fL (80.0-94.0); MEAN PLATELET VOLUME 7.8 fl (7.4-10.4); MONOCYTES % 8.7 % (2.0-8.0); NEUTROPHILS % 73.5 % (40.0-76.0); PLATELET 75 x1000/uL (130-400); RED CELL DISTRIBUTION WIDTH 16.8 % (11.6-14.6)
[2017-02-08] MEDS: SODIUM CHLORIDE 0.9% 1,000 ML IV SCH (11:00)
[2017-02-08 12:00] VITALS: BP 158/89
[2017-02-08 12:18] VITALS: BP 158/89
== END 2017-02-08 14:15 | disposition home or self-care (01) | DRG 48 ==
LOC: ER 14:57 → 6WST 16:03 → EDBEDREQ 16:06 → ENRESERV 20:03 → 6WST 02-07 18:15
PROVIDERS: ADMIT Internal Medicine; ATTEND Internal Medicine
DX: G90.8 Other disorders of autonomic nervous system (principal); G92 Toxic encephalopathy; D61.818 Other pancytopenia; I95.9 Hypotension, unspecified; R56.9 Unspecified convulsions; I11.9 Hypertensive heart disease without heart failure; K74.60 Unspecified cirrhosis of liver; E44.1 Mild protein-calorie malnutrition; M94.0 Chondrocostal junction syndrome [Tietze]; I25.2 Old myocardial infarction; E87.6 Hypokalemia; E11.9 Type 2 diabetes mellitus without complications; F10.10 Alcohol abuse, uncomplicated; F17.210 Nicotine dependence, cigarettes, uncomplicated; J44.9 Chronic obstructive pulmonary disease, unspecified; Y90.8 Blood alcohol level of 240 mg/100 ml or more; Z86.73 Personal history of transient ischemic attack (TIA), and cerebral infarction without residual deficits; Z90.49 Acquired absence of other specified parts of digestive tract; Z91.19 Patient's noncompliance with other medical treatment and regimen; Z95.1 Presence of aortocoronary bypass graft; F10.129 Alcohol abuse with intoxication, unspecified
CPT/HCPCS: 36415; 70450; 71010; 80048; 80053; 80061; 80305; 81003; 82550; 82553; 82962; 83735; 83880; 84443; 84484; 85025; 85610; 85730; 93005; 93970; 96361; 96374; 99291; G0482; J2060; J3411; J3490; J7030

== ENCOUNTER 2017-03-31 17:18 | Emergency (ER) | payer MEDICAID ==
[~2017-03-31] VITALS: Ht 182.9 cm; Wt 75.0 kg
[2017-03-31 18:43] VITALS: BP 102/62
[2017-03-31] MEDS ORDERED: KETOROLAC 60MG/2ML VIAL IM ONE (18:45)
== END 2017-03-31 19:25 | disposition home or self-care (01) ==
LOC: ER 17:35
DX: G89.29 Other chronic pain (principal); M25.562 Pain in left knee; F17.200 Nicotine dependence, unspecified, uncomplicated; I25.2 Old myocardial infarction; F10.20 Alcohol dependence, uncomplicated
CPT/HCPCS: 96372; 99283; J1885

== ENCOUNTER 2017-06-01 01:15 | Emergency (ER) | payer MEDICAID ==
[~2017-06-01] VITALS: Ht 177.8 cm; Wt 75.0 kg
[2017-06-01 03:23] LABS: BASOPHILS % 0.9 % (0.0-2.0); EOSINOPHILS % 4.9 % (0.0-5.0); HEMATOCRIT. 35.1 % (42.0-52.0); HEMOGLOBIN. 12.4 g/dL (14.0-18.0); LYMPHOCYTES % 37.5 % (20.0-50.0); MEAN CORPUSCULAR VOLUME 104.4 fL (80.0-94.0); MEAN PLATELET VOLUME 7.6 fl (7.4-10.4); NEUTROPHILS % 43.7 % (40.0-76.0); PLATELET 121 x1000/uL (130-400); RED BLOOD CELL COUNT 3.36 mill/uL (4.7-6.1); RED CELL DISTRIBUTION WIDTH 14.2 % (11.6-14.6)
[2017-06-01 03:27] LABS: INR 1.1; PARTIAL THROMBOPLASTIN TIME 27.8 sec (23.4-31.0); PROTHROMBIN TIME 11.5 sec (9.4-11.6)
[2017-06-01 03:35] LABS: CHLORIDE 108 mEq/L (98-107); TROPONIN I < 0.02 ng/mL (0.00-0.04)
[2017-06-01 03:41] LABS: ETHANOL BLOOD 311 mg/dL
[2017-06-01 08:26] VITALS: BP 121/82
== END 2017-06-01 08:28 | disposition home or self-care (01) ==
LOC: ER 01:19
DX: F10.229 Alcohol dependence with intoxication, unspecified (principal); R07.9 Chest pain, unspecified; R06.02 Shortness of breath; R05 Cough; Z95.5 Presence of coronary angioplasty implant and graft
CPT/HCPCS: 36415; 71045; 80053; 83880; 84484; 85025; 85610; 85730; 93005; 99285; G0482

== ENCOUNTER 2017-06-02 17:12 | Emergency (ER) | payer MEDICAID ==
[~2017-06-02] VITALS: Ht 175.3 cm; Wt 84.0 kg
[2017-06-02] MEDS ORDERED: KETOROLAC 60MG/2ML VIAL IM STA (21:47)
[2017-06-02] MEDS ORDERED: TETANUS, DIPHTHERIA, PERTUSSIS VAC/PF 0.5ML (>7YR OLD) IM ONE (22:00)
[2017-06-02 22:34] LABS: BASOPHILS % 1.1 % (0.0-2.0); EOSINOPHILS % 4.9 % (0.0-5.0); HEMATOCRIT. 36.4 % (42.0-52.0); HEMOGLOBIN. 12.7 g/dL (14.0-18.0); LYMPHOCYTES % 41.7 % (20.0-50.0); MEAN CORPUSCULAR HEMOGLOBIN 36.1 pg (28.0-32.0); MEAN CORPUSCULAR VOLUME 103.8 fL (80.0-94.0); MEAN PLATELET VOLUME 7.4 fl (7.4-10.4); NEUTROPHILS % 41.3 % (40.0-76.0); PLATELET 124 x1000/uL (130-400); RED BLOOD CELL COUNT 3.51 mill/uL (4.7-6.1); RED CELL DISTRIBUTION WIDTH 14.1 % (11.6-14.6)
[2017-06-02 22:50] LABS: CHLORIDE 108 mEq/L (98-107); ETHANOL BLOOD 262 mg/dL; TROPONIN I < 0.02 ng/mL (0.00-0.04)
[2017-06-03 00:20] VITALS: BP 112/76
== END 2017-06-03 00:24 | disposition home or self-care (01) ==
LOC: ER 17:26
DX: S51.812A Laceration without foreign body of left forearm, initial encounter (principal); F10.229 Alcohol dependence with intoxication, unspecified; I25.10 Atherosclerotic heart disease of native coronary artery without angina pectoris; F17.200 Nicotine dependence, unspecified, uncomplicated; Y90.8 Blood alcohol level of 240 mg/100 ml or more; Z95.1 Presence of aortocoronary bypass graft; X99.9XXA Assault by unspecified sharp object, initial encounter; Y93.89 Activity, other specified; Y92.488 Other paved roadways as the place of occurrence of the external cause
CPT/HCPCS: 36415; 71045; 73090; 73560; 80053; 84484; 85025; 93005; 96372; 99285; G0482; J1885; Z7610; 90715

== ENCOUNTER 2017-06-16 18:58 | Emergency (ER) | payer MEDICAID ==
[~2017-06-16] VITALS: Ht 170.2 cm; Wt 87.0 kg
[2017-06-16] MEDS ORDERED: KEPP500 PO (19:07)
[2017-06-16] MEDS ORDERED: FURO80TA87 PO (19:07)
[2017-06-16] MEDS ORDERED: ASPI-986 PO (19:07)
[2017-06-16 20:26] LABS: BASOPHILS % 0.8 % (0.0-2.0); EOSINOPHILS % 3.3 % (0.0-5.0); HEMATOCRIT. 39.1 % (42.0-52.0); HEMOGLOBIN. 13.4 g/dL (14.0-18.0); LYMPHOCYTES % 33.7 % (20.0-50.0); MEAN CORPUSCULAR HEMOGLOBIN 35.8 pg (28.0-32.0); MEAN CORPUSCULAR VOLUME 104.4 fL (80.0-94.0); MEAN PLATELET VOLUME 7.7 fl (7.4-10.4); MONOCYTES % 11.4 % (2.0-8.0); NEUTROPHILS % 50.8 % (40.0-76.0); PLATELET 118 x1000/uL (130-400); RED BLOOD CELL COUNT 3.75 mill/uL (4.7-6.1); RED CELL DISTRIBUTION WIDTH 14.4 % (11.6-14.6)
[2017-06-16 20:29] LABS: INR 1.1; PROTHROMBIN TIME 11.4 sec (9.4-11.6)
[2017-06-16 20:32] LABS: CHLORIDE 101 mEq/L (98-107)
[2017-06-16 20:38] LABS: TROPONIN I < 0.02 ng/mL (0.00-0.04)
[2017-06-16 20:48] LABS: ETHANOL BLOOD 459 mg/dL
[2017-06-17 09:05] VITALS: BP 116/71
== END 2017-06-17 09:14 | disposition home or self-care (01) ==
LOC: ER 18:58
DX: R07.9 Chest pain, unspecified (principal); T51.0X1A Toxic effect of ethanol, accidental (unintentional), initial encounter; F17.200 Nicotine dependence, unspecified, uncomplicated; I10 Essential (primary) hypertension; F10.129 Alcohol abuse with intoxication, unspecified; Y90.8 Blood alcohol level of 240 mg/100 ml or more; Z71.6 Tobacco abuse counseling; Z79.82 Long term (current) use of aspirin
CPT/HCPCS: 36415; 71045; 80053; 84484; 85025; 85610; 93005; 99285; 99406; G0482; Z7610

== ENCOUNTER 2017-06-20 19:46 | Emergency (ER) | payer MEDICAID ==
[~2017-06-20] VITALS: Ht 177.8 cm; Wt 82.0 kg
[~2017-06-20 19:46] MED LIST changes: +ASPI-986 PO; +FURO80TA87 PO; -IOHEXOL-350 100 ML BOTTLE ONE; +KEPP500 PO; -SODIUM CHLORIDE 0.9% 10ML VIAL ONE
[2017-06-20 19:56] VITALS: BP 162/89
== END 2017-06-20 22:45 | disposition left against medical advice (07) ==
LOC: ER 20:06
DX: M79.662 Pain in left lower leg (principal); Z53.21 Procedure and treatment not carried out due to patient leaving prior to being seen by health care provider

== ENCOUNTER 2017-07-04 21:10 | Emergency (ER) | payer MEDICAID ==
[~2017-07-04] VITALS: Ht 182.9 cm; Wt 91.0 kg
[~2017-07-04 21:10] MED LIST changes: -ASPI-986 PO; -FURO80TA87 PO
[2017-07-05] MEDS ORDERED: ASPIRIN 81MG TABLET PO ONE (04:30)
[2017-07-05 04:44] LABS: BASOPHILS % 0.9 % (0.0-2.0); EOSINOPHILS % 5.1 % (0.0-5.0); HEMATOCRIT. 36.5 % (42.0-52.0); HEMOGLOBIN. 12.7 g/dL (14.0-18.0); LYMPHOCYTES % 33.3 % (20.0-50.0); MEAN CORPUSCULAR HEMOGLOBIN 36.1 pg (28.0-32.0); MEAN CORPUSCULAR VOLUME 103.9 fL (80.0-94.0); MEAN PLATELET VOLUME 7.4 fl (7.4-10.4); MONOCYTES % 10.8 % (2.0-8.0); NEUTROPHILS % 49.9 % (40.0-76.0); PLATELET 199 x1000/uL (130-400); RED BLOOD CELL COUNT 3.51 mill/uL (4.7-6.1)
[2017-07-05 04:50] LABS: INR 1.1
[2017-07-05 04:53] LABS: CHLORIDE 109 mEq/L (98-107); ETHANOL BLOOD 215 mg/dL
[2017-07-05 05:57] VITALS: BP 126/88
== END 2017-07-05 06:22 | disposition home or self-care (01) ==
LOC: ER 21:15
DX: T51.91XA Toxic effect of unspecified alcohol, accidental (unintentional), initial encounter (principal); D50.8 Other iron deficiency anemias; I10 Essential (primary) hypertension; R56.9 Unspecified convulsions; Y92.89 Other specified places as the place of occurrence of the external cause; Y90.7 Blood alcohol level of 200-239 mg/100 ml
CPT/HCPCS: 36415; 71045; 80053; 83690; 83880; 84484; 85025; 85610; 99285; G0482

== ENCOUNTER 2017-07-07 00:34 | Emergency (ER) | payer MEDICAID ==
[~2017-07-07] VITALS: Ht 182.9 cm; Wt 82.0 kg
[2017-07-07 09:37] LABS: BG BASE EXCESS 0.3 mmol/L (-2.0-2.0); BG DEOXYHEMOGLOBIN 5.2 % (0.0-5.0); BG HCO3 ACT 24.6 mmol/L (22.0-26.0); BG METHEMOGLOBIN 0.1 % (0.0-1.5); BG OXYGEN SATURATION 94.6 % (92.0-98.5); BG OXYHEMOGLOBIN 91.7 % (94.0-97.0); BG PCO2 38.8 mmHg (35.0-45.0); BG PO2 77.8 mmHg (75.0-100.0); BG SAMPLE SITE RIGHT RADIAL; BG TOTAL HEMOGLOBIN 13.4 g/dL (12.0-18.0); BG VENT MODE ROOM AIR
[2017-07-07 09:40] LABS: CLARITY URINE CLEAR (CLEAR); COLOR URINE YELLOW (YELLOW); KETONES URINE NEGATIVE (NEGATIVE); LEUKOCYTE ESTERASE URINE NEGATIVE (NEGATIVE); NITRITE URINE NEGATIVE (NEGATIVE); OCCULT BLOOD URINE NEGATIVE (NEGATIVE); PH URINE 5.5 (4.5-8.0); PROTEIN URINE NEGATIVE (NEGATIVE); SPECIFIC GRAVITY URINE 1.008 (1.005-1.030); UROBILINOGEN URINE 0.2 E.U./dL (0.2-1.0)
[2017-07-07 11:45] VITALS: BP 126/80
== END 2017-07-07 12:30 | disposition home or self-care (01) ==
LOC: ER 00:34
DX: R07.9 Chest pain, unspecified (principal); I10 Essential (primary) hypertension; F10.20 Alcohol dependence, uncomplicated
CPT/HCPCS: 36415; 36600; 71045; 81003; 82375; 82805; 84484; 93005; 99285; Z7610

== ENCOUNTER 2017-07-28 21:57 | Emergency (ER) | payer MEDICAID ==
[~2017-07-28] VITALS: Ht 180.3 cm; Wt 81.6 kg
[2017-07-28 22:08] VITALS: BP 126/72
== END 2017-07-29 02:48 | disposition left against medical advice (07) ==
LOC: ER 21:57
DX: Z53.21 Procedure and treatment not carried out due to patient leaving prior to being seen by health care provider (principal)

== ENCOUNTER 2017-08-08 01:30 | Emergency (ER) | payer MEDICAID ==
[~2017-08-08] VITALS: Ht 175.3 cm; Wt 75.0 kg
[2017-08-08 07:08] LABS: CLARITY URINE CLEAR (CLEAR); COLOR URINE YELLOW (YELLOW); KETONES URINE NEGATIVE (NEGATIVE); LEUKOCYTE ESTERASE URINE NEGATIVE (NEGATIVE); NITRITE URINE NEGATIVE (NEGATIVE); OCCULT BLOOD URINE NEGATIVE (NEGATIVE); PROTEIN URINE NEGATIVE (NEGATIVE); SPECIFIC GRAVITY URINE 1.008 (1.005-1.030); UROBILINOGEN URINE 0.2 E.U./dL (0.2-1.0)
[2017-08-08 07:27] LABS: EOSINOPHILS % 4.5 % (0.0-5.0); HEMATOCRIT. 39.2 % (42.0-52.0); HEMOGLOBIN. 13.4 g/dL (14.0-18.0); LYMPHOCYTES % 39.5 % (20.0-50.0); MEAN CORPUSCULAR HEMOGLOBIN 34.9 pg (28.0-32.0); MEAN CORPUSCULAR VOLUME 102.5 fL (80.0-94.0); MEAN PLATELET VOLUME 7.3 fl (7.4-10.4); MONOCYTES % 11.3 % (2.0-8.0); NEUTROPHILS % 43.7 % (40.0-76.0); PLATELET 89 x1000/uL (130-400); RED BLOOD CELL COUNT 3.83 mill/uL (4.7-6.1); RED CELL DISTRIBUTION WIDTH 14.7 % (11.6-14.6)
[2017-08-08 08:23] LABS: CHLORIDE 105 mEq/L (98-107)
[2017-08-08 08:31] LABS: *AMPHETAMINES SCREEN URINE NEGATIVE (NEGATIVE); *BARBITURATES SCREEN URINE NEGATIVE (NEGATIVE); *BENZODIAZEPINES SCREEN URINE NEGATIVE (NEGATIVE)
[2017-08-08 08:32] LABS: *COCAINE SCREEN URINE NEGATIVE (NEGATIVE); METHADONE URINE SCREEN NEGATIVE (NEGATIVE)
[2017-08-08 08:33] LABS: CANNABINOID URINE SCREEN NEGATIVE (NEGATIVE); OPIATES URINE SCREEN NEGATIVE (NEGATIVE); PHENCYCLIDINE URINE SCREEN NEGATIVE (NEGATIVE)
[2017-08-08 09:16] LABS: ETHANOL BLOOD 331 mg/dL
[2017-08-08 13:26] VITALS: BP 105/61
== END 2017-08-08 14:00 | disposition home or self-care (01) ==
LOC: ER 01:30
DX: G93.40 Encephalopathy, unspecified (principal); F10.129 Alcohol abuse with intoxication, unspecified; I10 Essential (primary) hypertension
CPT/HCPCS: 36415; 70450; 80053; 80305; 81003; 83690; 85025; 99285; G0482

== ENCOUNTER 2017-08-18 18:56 | Emergency (ER) | payer MEDICAID ==
[~2017-08-18] VITALS: Ht 172.7 cm; Wt 85.0 kg
[2017-08-18] MEDS ORDERED: ONDANSETRON 4MG ODT PO STA (19:01)
[2017-08-18 19:41] LABS: BASOPHILS % 0.5 % (0.0-2.0); EOSINOPHILS % 1.9 % (0.0-5.0); HEMOGLOBIN. 11.8 g/dL (14.0-18.0); LYMPHOCYTES % 20.6 % (20.0-50.0); MEAN CORPUSCULAR HEMOGLOBIN 35.3 pg (28.0-32.0); MEAN CORPUSCULAR VOLUME 101.9 fL (80.0-94.0); MONOCYTES % 14.4 % (2.0-8.0); NEUTROPHILS % 62.6 % (40.0-76.0); PLATELET 83 x1000/uL (130-400); RED BLOOD CELL COUNT 3.34 mill/uL (4.7-6.1); RED CELL DISTRIBUTION WIDTH 14.3 % (11.6-14.6)
[2017-08-18 19:43] LABS: CHLORIDE 95 mEq/L (98-107)
[2017-08-18 19:45] LABS: INR 1.1; PROTHROMBIN TIME 11.6 sec (9.4-11.6)
[2017-08-18 19:47] LABS: ETHANOL BLOOD 185 mg/dL
[2017-08-19 03:50] VITALS: BP 102/69
== END 2017-08-19 04:35 | disposition home or self-care (01) ==
LOC: ER 19:24
DX: T51.0X1A Toxic effect of ethanol, accidental (unintentional), initial encounter (principal); F10.10 Alcohol abuse, uncomplicated; Y90.6 Blood alcohol level of 120-199 mg/100 ml; E87.1 Hypo-osmolality and hyponatremia; E87.6 Hypokalemia; Y92.89 Other specified places as the place of occurrence of the external cause; E11.9 Type 2 diabetes mellitus without complications; F17.210 Nicotine dependence, cigarettes, uncomplicated; G40.909 Epilepsy, unspecified, not intractable, without status epilepticus
CPT/HCPCS: 36415; 80053; 84484; 85025; 85610; 93005; 99285; G0482

== ENCOUNTER 2017-08-23 18:23 | Emergency (ER) | payer MEDICAID ==
[~2017-08-23] VITALS: Ht 182.9 cm; Wt 90.0 kg
[2017-08-23 18:25] VITALS: BP 142/94
== END 2017-08-24 00:19 | disposition left against medical advice (07) ==
LOC: ER 18:34
DX: M79.605 Pain in left leg (principal); M79.604 Pain in right leg; Z53.21 Procedure and treatment not carried out due to patient leaving prior to being seen by health care provider

== ENCOUNTER 2017-09-03 18:56 | Emergency (ER) | payer MEDICAID ==
[~2017-09-03] VITALS: Ht 180.3 cm; Wt 72.0 kg
[2017-09-03 20:53] LABS: BASOPHILS % 0.8 % (0.0-2.0); EOSINOPHILS % 4.1 % (0.0-5.0); HEMATOCRIT. 33.6 % (42.0-52.0); HEMOGLOBIN. 11.9 g/dL (14.0-18.0); LYMPHOCYTES % 28.3 % (20.0-50.0); MEAN CORPUSCULAR HEMOGLOBIN 36.2 pg (28.0-32.0); MEAN CORPUSCULAR VOLUME 102.4 fL (80.0-94.0); MEAN PLATELET VOLUME 7.5 fl (7.4-10.4); MONOCYTES % 11.1 % (2.0-8.0); NEUTROPHILS % 55.7 % (40.0-76.0); PLATELET 123 x1000/uL (130-400); RED BLOOD CELL COUNT 3.28 mill/uL (4.7-6.1)
[2017-09-03 20:55] LABS: CHLORIDE 104 mEq/L (98-107)
[2017-09-03 20:58] LABS: INR 1.1; PROTHROMBIN TIME 11.4 sec (9.4-11.6)
[2017-09-03 21:04] LABS: CREATINE KINASE 300 IU/L (39-308)
[2017-09-03 21:06] LABS: CREATINE KINASE MB FRACTION 4.2 ng/mL (0.5-3.6)
[2017-09-03 22:53] LABS: *BARBITURATES SCREEN URINE NEGATIVE (NEGATIVE)
[2017-09-03 22:54] LABS: *AMPHETAMINES SCREEN URINE NEGATIVE (NEGATIVE); *BENZODIAZEPINES SCREEN URINE PRESUMTIVE POSITIVE (NEGATIVE); *COCAINE SCREEN URINE NEGATIVE (NEGATIVE); CANNABINOID URINE SCREEN NEGATIVE (NEGATIVE); METHADONE URINE SCREEN NEGATIVE (NEGATIVE); OPIATES URINE SCREEN NEGATIVE (NEGATIVE); PHENCYCLIDINE URINE SCREEN NEGATIVE (NEGATIVE)
[2017-09-03] MEDS ORDERED: ACETAMINOPHEN 325MG TABLET PO ONE (23:00)
[2017-09-04 00:45] VITALS: BP 120/71
[2017-09-12] MEDS ORDERED: POTASSIUM CHLORIDE 20MEQ TABLET SR PO SCH
== END 2017-09-04 00:45 | disposition home or self-care (01) ==
LOC: ER 19:13
DX: R07.89 Other chest pain (principal); J06.9 Acute upper respiratory infection, unspecified; E11.9 Type 2 diabetes mellitus without complications; G40.909 Epilepsy, unspecified, not intractable, without status epilepticus; I11.9 Hypertensive heart disease without heart failure; D64.9 Anemia, unspecified; F13.10 Sedative, hypnotic or anxiolytic abuse, uncomplicated; F10.10 Alcohol abuse, uncomplicated; Y90.7 Blood alcohol level of 200-239 mg/100 ml
CPT/HCPCS: 36415; 71045; 80053; 80305; 82550; 82553; 83690; 83880; 84443; 84484; 85025; 85610; 85730; 93005; 99285; G0482

== ENCOUNTER 2017-09-07 13:08 | Emergency (ER) | payer MEDICAID ==
[~2017-09-07] VITALS: Ht 177.8 cm; Wt 70.0 kg
[2017-09-07 18:01] VITALS: BP 140/58
== END 2017-09-07 18:23 | disposition left against medical advice (07) ==
LOC: ER 14:02
DX: K29.20 Alcoholic gastritis without bleeding (principal); I10 Essential (primary) hypertension; E11.9 Type 2 diabetes mellitus without complications; F17.200 Nicotine dependence, unspecified, uncomplicated; F10.20 Alcohol dependence, uncomplicated; M79.641 Pain in right hand; M79.642 Pain in left hand; M25.561 Pain in right knee; M25.562 Pain in left knee; R56.9 Unspecified convulsions; Y90.9 Presence of alcohol in blood, level not specified; Z87.440 Personal history of urinary (tract) infections
CPT/HCPCS: 99283; Z7610

== ENCOUNTER 2017-09-11 21:38 | Emergency (ER) | payer MEDICAID ==
[~2017-09-11] VITALS: Ht 188 cm; Wt 91.0 kg
[2017-09-11] MEDS ORDERED: ASPIRIN 81MG TABLET PO ONE (22:45)
[2017-09-11 23:11] LABS: CHLORIDE 106 mEq/L (98-107)
[2017-09-11 23:13] LABS: BASOPHILS % 1.1 % (0.0-2.0); EOSINOPHILS % 4.3 % (0.0-5.0); HEMATOCRIT. 32.7 % (42.0-52.0); HEMOGLOBIN. 11.5 g/dL (14.0-18.0); LYMPHOCYTES % 36.1 % (20.0-50.0); MEAN CORPUSCULAR HEMOGLOBIN 35.8 pg (28.0-32.0); MEAN PLATELET VOLUME 7.6 fl (7.4-10.4); NEUTROPHILS % 45.5 % (40.0-76.0); PLATELET 100 x1000/uL (130-400); RED CELL DISTRIBUTION WIDTH 14.7 % (11.6-14.6)
[2017-09-12 00:24] VITALS: BP 115/78
== END 2017-09-12 00:26 | disposition home or self-care (01) ==
LOC: ER 21:38
DX: E87.6 Hypokalemia (principal); R07.89 Other chest pain; I25.2 Old myocardial infarction; K21.9 Gastro-esophageal reflux disease without esophagitis; I10 Essential (primary) hypertension; E11.9 Type 2 diabetes mellitus without complications; R56.9 Unspecified convulsions; J06.9 Acute upper respiratory infection, unspecified; N39.0 Urinary tract infection, site not specified; F17.200 Nicotine dependence, unspecified, uncomplicated; F10.20 Alcohol dependence, uncomplicated; Z59.0 Homelessness
CPT/HCPCS: 36415; 71045; 80053; 84484; 85025; 93005; 99285

== ENCOUNTER 2017-09-13 03:21 | Emergency (ER) | payer MEDICAID ==
[~2017-09-13] VITALS: Ht 175.3 cm; Wt 81.0 kg
[2017-09-13 05:30] VITALS: BP 114/61
== END 2017-09-13 06:07 | disposition home or self-care (01) ==
LOC: ER 03:21
DX: R05 Cough (principal); R07.89 Other chest pain; R09.81 Nasal congestion; I10 Essential (primary) hypertension; I25.2 Old myocardial infarction; F10.20 Alcohol dependence, uncomplicated; E11.9 Type 2 diabetes mellitus without complications; K21.9 Gastro-esophageal reflux disease without esophagitis; R56.9 Unspecified convulsions; Z87.440 Personal history of urinary (tract) infections; Z90.49 Acquired absence of other specified parts of digestive tract
CPT/HCPCS: 93005; 99283; Z7610

== ENCOUNTER 2017-09-13 07:12 | Emergency (ER) | payer MEDICAID ==
[~2017-09-13] VITALS: Ht 182.9 cm; Wt 80.0 kg
[2017-09-13 09:30] VITALS: BP 125/78
[2017-09-13 09:31] LABS: BASOPHILS % 0.5 % (0.0-2.0); HEMATOCRIT. 34.2 % (42.0-52.0); HEMOGLOBIN. 11.8 g/dL (14.0-18.0); MEAN CORPUSCULAR HEMOGLOBIN 35.3 pg (28.0-32.0); MEAN CORPUSCULAR VOLUME 102.4 fL (80.0-94.0); MEAN PLATELET VOLUME 7.3 fl (7.4-10.4); MONOCYTES % 14.6 % (2.0-8.0); NEUTROPHILS % 53.9 % (40.0-76.0); PLATELET 107 x1000/uL (130-400); RED BLOOD CELL COUNT 3.34 mill/uL (4.7-6.1); RED CELL DISTRIBUTION WIDTH 14.9 % (11.6-14.6)
[2017-09-13 09:37] LABS: CHLORIDE 113 mEq/L (98-107)
== END 2017-09-13 10:57 | disposition home or self-care (01) ==
LOC: ER 07:42
DX: R07.89 Other chest pain (principal); F17.200 Nicotine dependence, unspecified, uncomplicated; F10.20 Alcohol dependence, uncomplicated; I10 Essential (primary) hypertension; Z90.49 Acquired absence of other specified parts of digestive tract
CPT/HCPCS: 36415; 71045; 80053; 83880; 84484; 85025; 99285

== ENCOUNTER 2017-10-01 | Emergency (ER) | payer MEDICAID ==
[~2017-10-01] VITALS: Ht 182.9 cm; Wt 82.0 kg
[2017-10-01] MEDS ORDERED: SODIUM CHLORIDE 0.9% 1,000 ML IV ONE (07:02)
[2017-10-01] MEDS ORDERED: ACETAMINOPHEN 325MG TABLET PO STA (07:02)
[2017-10-01 07:32] LABS: HEMATOCRIT. 38.9 % (42.0-52.0); HEMOGLOBIN. 13.5 g/dL (14.0-18.0); MEAN CORPUSCULAR VOLUME 104.1 fL (80.0-94.0); MEAN PLATELET VOLUME 7.7 fl (7.4-10.4); PLATELET 129 x1000/uL (130-400); RED BLOOD CELL COUNT 3.74 mill/uL (4.7-6.1)
[2017-10-01 07:33] LABS: CHLORIDE 113 mEq/L (98-107)
[2017-10-01 07:37] LABS: ETHANOL BLOOD 211 mg/dL
[2017-10-01 08:27] LABS: PLATELET ESTIMATE NORMAL
[2017-10-01 12:00] VITALS: BP 135/87
== END 2017-10-01 12:22 | disposition home or self-care (01) ==
LOC: ER
DX: S80.02XA Contusion of left knee, initial encounter (principal); F10.229 Alcohol dependence with intoxication, unspecified; J45.909 Unspecified asthma, uncomplicated; Y90.7 Blood alcohol level of 200-239 mg/100 ml; W01.0XXA Fall on same level from slipping, tripping and stumbling without subsequent striking against object, initial encounter; Y93.89 Activity, other specified; Y92.488 Other paved roadways as the place of occurrence of the external cause
CPT/HCPCS: 36415; 73560; 80053; 85025; 99285; G0482; J7030; Z7610

== ENCOUNTER 2017-10-02 23:33 | Emergency (ER) | payer MEDICAID ==
[~2017-10-02] VITALS: Ht 182.9 cm; Wt 91.0 kg
[2017-10-03 08:10] LABS: CHLORIDE 105 mEq/L (98-107)
[2017-10-03 08:22] LABS: HEMATOCRIT. 35.8 % (42.0-52.0); HEMOGLOBIN. 12.4 g/dL (14.0-18.0); MEAN CORPUSCULAR HEMOGLOBIN 35.8 pg (28.0-32.0); MEAN CORPUSCULAR VOLUME 103.3 fL (80.0-94.0); MEAN PLATELET VOLUME 7.5 fl (7.4-10.4); PLATELET 155 x1000/uL (130-400); RED BLOOD CELL COUNT 3.47 mill/uL (4.7-6.1); RED CELL DISTRIBUTION WIDTH 15.4 % (11.6-14.6)
[2017-10-03] MEDS: IBUPROFEN 800MG TABLET PO ONE ×2 (08:28→10:00)
[2017-10-03 08:57] LABS: PLATELET ESTIMATE NORMAL
[2017-10-03 10:00] VITALS: BP 110/60
== END 2017-10-03 10:04 | disposition home or self-care (01) ==
LOC: ER 23:33
DX: M25.562 Pain in left knee (principal); W01.0XXA Fall on same level from slipping, tripping and stumbling without subsequent striking against object, initial encounter; Y93.01 Activity, walking, marching and hiking; Y92.9 Unspecified place or not applicable; E11.9 Type 2 diabetes mellitus without complications; I10 Essential (primary) hypertension; R56.9 Unspecified convulsions; F17.200 Nicotine dependence, unspecified, uncomplicated
CPT/HCPCS: 36415; 80048; 85025; 99284; L1830; Z7610

== ENCOUNTER 2017-10-10 22:01 | Emergency (ER) | payer MEDICAID ==
[~2017-10-10] VITALS: Ht 177.8 cm; Wt 73.0 kg
[2017-10-11 03:30] VITALS: BP 110/56
[2017-10-11] MEDS ORDERED: IBUPROFEN 600MG TABLET PO ONE (04:15)
[2017-10-11 04:40] LABS: HEMATOCRIT. 37.4 % (42.0-52.0); HEMOGLOBIN. 13.1 g/dL (14.0-18.0); MEAN CORPUSCULAR HEMOGLOBIN 35.6 pg (28.0-32.0); MEAN CORPUSCULAR VOLUME 101.9 fL (80.0-94.0); MEAN PLATELET VOLUME 7.7 fl (7.4-10.4); PLATELET 186 x1000/uL (130-400); RED BLOOD CELL COUNT 3.67 mill/uL (4.7-6.1); RED CELL DISTRIBUTION WIDTH 14.2 % (11.6-14.6)
[2017-10-11 04:48] LABS: CHLORIDE 101 mEq/L (98-107); INR 1.1; PROTHROMBIN TIME 11.6 sec (9.4-11.6)
[2017-10-11 04:52] LABS: ETHANOL BLOOD 200 mg/dL
[2017-10-11 05:22] LABS: ATYPICAL LYMPHOCYTES 1; PLATELET ESTIMATE NORMAL
== END 2017-10-11 06:00 | disposition home or self-care (01) ==
LOC: ER 23:41
DX: F10.129 Alcohol abuse with intoxication, unspecified (principal); E11.9 Type 2 diabetes mellitus without complications; I10 Essential (primary) hypertension; R56.9 Unspecified convulsions; F17.200 Nicotine dependence, unspecified, uncomplicated
CPT/HCPCS: 36415; 80053; 83880; 84484; 85025; 85610; 93005; 99285; G0482

== ENCOUNTER 2017-10-11 11:16 | Emergency (ER) | payer MEDICAID ==
[~2017-10-11] VITALS: Ht 177.8 cm; Wt 80.0 kg
[2017-10-11] MEDS ORDERED: KETOROLAC 60MG/2ML VIAL IM ONE (12:45)
[2017-10-11 13:12] VITALS: BP 110/81
== END 2017-10-11 13:21 | disposition home or self-care (01) ==
LOC: ER 11:40
DX: M25.562 Pain in left knee (principal); M25.561 Pain in right knee; I10 Essential (primary) hypertension; W01.0XXA Fall on same level from slipping, tripping and stumbling without subsequent striking against object, initial encounter; Y93.89 Activity, other specified; Y92.89 Other specified places as the place of occurrence of the external cause
CPT/HCPCS: 73560; 73562; 96372; 99284; J1885

== ENCOUNTER 2017-10-12 15:54 | Emergency (ER) | payer MEDICAID ==
[~2017-10-12] VITALS: Ht 167.6 cm; Wt 82.0 kg
[2017-10-12] MEDS ORDERED: SODIUM CHLORIDE 0.9% 1,000 ML IV ONE (16:14)
[2017-10-12] MEDS ORDERED: FAMOTIDINE 20MG/2ML VIAL IV ONE (16:15)
[2017-10-12 16:43] LABS: HEMATOCRIT. 32.2 % (42.0-52.0); HEMOGLOBIN. 11.3 g/dL (14.0-18.0); MEAN CORPUSCULAR HEMOGLOBIN 35.5 pg (28.0-32.0); MEAN CORPUSCULAR VOLUME 101.3 fL (80.0-94.0); MEAN PLATELET VOLUME 7.4 fl (7.4-10.4); PLATELET 198 x1000/uL (130-400); RED BLOOD CELL COUNT 3.18 mill/uL (4.7-6.1)
[2017-10-12 16:51] LABS: CHLORIDE 103 mEq/L (98-107)
[2017-10-12 16:56] LABS: ETHANOL BLOOD 174 mg/dL
[2017-10-12 17:23] LABS: PLATELET ESTIMATE NORMAL
[2017-10-12 18:45] VITALS: BP 129/82
== END 2017-10-12 19:21 | disposition home or self-care (01) ==
LOC: ER 16:17
DX: M79.605 Pain in left leg (principal); M79.604 Pain in right leg; M79.1 Myalgia; G89.29 Other chronic pain; I25.2 Old myocardial infarction; F17.200 Nicotine dependence, unspecified, uncomplicated
CPT/HCPCS: 36415; 80053; 85025; 96374; 99284; G0482; J3490; J7030; Z7610

== ENCOUNTER 2017-10-12 21:15 | Emergency (ER) | payer MEDICAID ==
[~2017-10-12] VITALS: Ht 182.9 cm; Wt 82.0 kg
[2017-10-12] MEDS ORDERED: KETOROLAC 60MG/2ML VIAL IM ONE (22:15)
[2017-10-12 23:44] VITALS: BP 134/79
== END 2017-10-12 23:53 | disposition home or self-care (01) ==
LOC: ER 21:15
DX: M25.561 Pain in right knee (principal); M25.562 Pain in left knee; F17.200 Nicotine dependence, unspecified, uncomplicated
CPT/HCPCS: 96372; 99283; J1885

== ENCOUNTER 2017-10-13 21:02 | Emergency (ER) | payer MEDICAID ==
[~2017-10-13] VITALS: Ht 177.8 cm; Wt 90.0 kg
[2017-10-13 21:06] VITALS: BP 92/51
== END 2017-10-13 23:31 | disposition left against medical advice (07) ==
LOC: ER 22:47
DX: Z53.21 Procedure and treatment not carried out due to patient leaving prior to being seen by health care provider (principal)

== ENCOUNTER 2017-10-19 23:23 | Emergency (ER) | payer MEDICAID ==
[~2017-10-19] VITALS: Ht 177.8 cm; Wt 88.0 kg
[2017-10-19 23:29] VITALS: BP 108/70
== END 2017-10-20 | disposition left against medical advice (07) ==
LOC: ER 23:23
DX: Z53.21 Procedure and treatment not carried out due to patient leaving prior to being seen by health care provider (principal); F10.20 Alcohol dependence, uncomplicated

== ENCOUNTER 2017-10-26 16:52 | Emergency (ER) | payer MEDICAID ==
[~2017-10-26] VITALS: Ht 182.9 cm; Wt 87.0 kg
[2017-10-26 18:21] VITALS: BP 102/64
[2017-10-26] MEDS ORDERED: IBUPROFEN 600MG TABLET PO STA (18:21)
[2017-10-26 19:39] LABS: CHLORIDE 102 mEq/L (98-107)
[2017-10-26 19:44] LABS: ETHANOL BLOOD 164 mg/dL
[2017-10-26 19:47] LABS: EOSINOPHILS % 5.5 % (0.0-5.0); HEMATOCRIT. 34.3 % (42.0-52.0); HEMOGLOBIN. 11.7 g/dL (14.0-18.0); LYMPHOCYTES % 31.2 % (20.0-50.0); MEAN CORPUSCULAR HEMOGLOBIN 35.5 pg (28.0-32.0); MEAN CORPUSCULAR VOLUME 103.9 fL (80.0-94.0); MEAN PLATELET VOLUME 7.3 fl (7.4-10.4); MONOCYTES % 8.8 % (2.0-8.0); NEUTROPHILS % 53.5 % (40.0-76.0); PLATELET 185 x1000/uL (130-400); RED CELL DISTRIBUTION WIDTH 13.9 % (11.6-14.6)
== END 2017-10-27 01:45 | disposition home or self-care (01) ==
LOC: ER 17:34
DX: T51.91XA Toxic effect of unspecified alcohol, accidental (unintentional), initial encounter (principal); R07.9 Chest pain, unspecified; Y92.9 Unspecified place or not applicable; E11.9 Type 2 diabetes mellitus without complications; R56.9 Unspecified convulsions
CPT/HCPCS: 36415; 80053; 84484; 85025; 93005; 99285; G0482

== ENCOUNTER 2017-10-27 06:35 | Emergency (ER) | payer MEDICAID ==
[~2017-10-27] VITALS: Ht 182.9 cm; Wt 84.0 kg
[2017-10-27 06:43] VITALS: BP 148/70
== END 2017-10-27 13:16 | disposition left against medical advice (07) ==
LOC: ER 06:35
DX: Z53.21 Procedure and treatment not carried out due to patient leaving prior to being seen by health care provider (principal)

== ENCOUNTER 2017-10-29 17:25 | Emergency (ER) | payer MEDICAID ==
[~2017-10-29] VITALS: Ht 172.7 cm; Wt 81.0 kg
[2017-10-29 17:31] VITALS: BP 95/50
== END 2017-10-29 22:00 | disposition left against medical advice (07) ==
LOC: ER 17:25
DX: Z53.21 Procedure and treatment not carried out due to patient leaving prior to being seen by health care provider (principal)

== ENCOUNTER 2017-10-30 00:18 | Emergency (ER) | payer MEDICAID ==
[~2017-10-30] VITALS: Ht 180.3 cm; Wt 91.0 kg
[2017-10-30 00:24] VITALS: BP 110/72
== END 2017-10-30 03:00 | disposition left against medical advice (07) ==
LOC: ER 00:18
DX: M25.562 Pain in left knee (principal); M25.561 Pain in right knee; I51.9 Heart disease, unspecified; Z90.49 Acquired absence of other specified parts of digestive tract; Z53.21 Procedure and treatment not carried out due to patient leaving prior to being seen by health care provider

== ENCOUNTER 2017-10-30 22:10 | Emergency (ER) | payer MEDICAID ==
[~2017-10-30] VITALS: Ht 175.3 cm; Wt 73.0 kg
[2017-10-30 22:15] VITALS: BP 116/66
== END 2017-10-31 07:40 | disposition left against medical advice (07) ==
LOC: ER 22:10
DX: Z53.21 Procedure and treatment not carried out due to patient leaving prior to being seen by health care provider (principal); M25.562 Pain in left knee; M25.561 Pain in right knee; F17.200 Nicotine dependence, unspecified, uncomplicated

== ENCOUNTER 2017-11-08 12:06 | Emergency (ER) | payer MEDICAID ==
[~2017-11-08] VITALS: Ht 182.9 cm; Wt 82.0 kg
[2017-11-08 12:27] VITALS: BP 112/62
== END 2017-11-08 17:53 | disposition home or self-care (01) ==
LOC: ER 12:06
DX: F10.229 Alcohol dependence with intoxication, unspecified (principal); Y90.8 Blood alcohol level of 240 mg/100 ml or more
CPT/HCPCS: 36415; 99283; G0482

== ENCOUNTER 2017-11-10 11:00 | Emergency (ER) | payer MEDICAID ==
[~2017-11-10] VITALS: Ht 172.7 cm; Wt 81.0 kg
[2017-11-10] MEDS ORDERED: ACETAMINOPHEN 325MG TABLET PO ONE (11:30)
[2017-11-10 11:38] LABS: BASOPHILS % 0.6 % (0.0-2.0); EOSINOPHILS % 2.3 % (0.0-5.0); HEMATOCRIT. 34.5 % (42.0-52.0); HEMOGLOBIN. 11.9 g/dL (14.0-18.0); LYMPHOCYTES % 25.1 % (20.0-50.0); MEAN CORPUSCULAR VOLUME 101.6 fL (80.0-94.0); MEAN PLATELET VOLUME 7.3 fl (7.4-10.4); MONOCYTES % 10.4 % (2.0-8.0); NEUTROPHILS % 61.6 % (40.0-76.0); PLATELET 108 x1000/uL (130-400); RED CELL DISTRIBUTION WIDTH 14.6 % (11.6-14.6)
[2017-11-10 11:44] LABS: CHLORIDE 108 mEq/L (98-107)
[2017-11-10 11:49] LABS: INR 1.1; PROTHROMBIN TIME 11.7 sec (9.4-11.6)
[2017-11-10 12:03] LABS: ETHANOL BLOOD 310 mg/dL
[2017-11-10] MEDS ORDERED: SODIUM CHLORIDE 0.9% 1000ML BAG (SEPSIS BOLUS) IV ONE (12:30)
[2017-11-10 15:48] LABS: CLARITY URINE CLEAR (CLEAR); COLOR URINE YELLOW (YELLOW); KETONES URINE NEGATIVE (NEGATIVE); LEUKOCYTE ESTERASE URINE NEGATIVE (NEGATIVE); NITRITE URINE NEGATIVE (NEGATIVE); OCCULT BLOOD URINE NEGATIVE (NEGATIVE); PROTEIN URINE NEGATIVE (NEGATIVE); SPECIFIC GRAVITY URINE 1.007 (1.005-1.030); UROBILINOGEN URINE 0.2 E.U./dL (0.2-1.0)
[2017-11-10 16:03] LABS: *AMPHETAMINES SCREEN URINE NEGATIVE (NEGATIVE); *BARBITURATES SCREEN URINE NEGATIVE (NEGATIVE); *BENZODIAZEPINES SCREEN URINE NEGATIVE (NEGATIVE); *COCAINE SCREEN URINE NEGATIVE (NEGATIVE); METHADONE URINE SCREEN NEGATIVE (NEGATIVE)
[2017-11-10 16:04] LABS: CANNABINOID URINE SCREEN NEGATIVE (NEGATIVE); OPIATES URINE SCREEN NEGATIVE (NEGATIVE); PHENCYCLIDINE URINE SCREEN NEGATIVE (NEGATIVE)
[2017-11-10 21:14] VITALS: BP 138/72
== END 2017-11-10 21:36 | disposition home or self-care (01) ==
LOC: ER 11:05
DX: F10.229 Alcohol dependence with intoxication, unspecified (principal); R07.89 Other chest pain; E87.2 Acidosis; D64.9 Anemia, unspecified; I25.10 Atherosclerotic heart disease of native coronary artery without angina pectoris; I25.2 Old myocardial infarction; I10 Essential (primary) hypertension; G89.29 Other chronic pain; M25.562 Pain in left knee; M25.561 Pain in right knee; F17.200 Nicotine dependence, unspecified, uncomplicated; Y90.8 Blood alcohol level of 240 mg/100 ml or more
CPT/HCPCS: 36415; 71045; 80053; 80305; 81003; 83605; 83690; 83880; 84484; 85025; 85610; 93005; 99285; G0482; J7030; J7040